=== PATIENT | female | born 1995 | race Caucasian/White ===

== ENCOUNTER 2017-05-14 09:09 | Inpatient (IN) | payer OTHER ==
[2017-05-14] MEDS ORDERED: CLEOCIN HCL300 M1 PO (09:16)
[2017-05-14 10:05] LABS: URINE BILIRUBIN MODERATE (NEG); URINE BLOOD MODERATE (NEG); URINE GLUCOSE (UA) NEGATIVE (NEG); URINE KETONE SMALL (NEG); URINE LEUKOCYTE ESTERASE POSITIVE (NEG); URINE NITRITE POSITIVE (NEG); URINE PROTEIN MODERATE (NEG); URINE SPECIFIC GRAVITY 1.025 (1.003-1.030)
[2017-05-14 10:10] LABS: URINE APPEARANCE CLOUDY; URINE COLOR DARK YELLOW
[2017-05-14 10:12] LABS: URINE BACTERIA 3+
[2017-05-14 10:14] LABS: URINE AMORPHOUS 1+
[2017-05-14 10:44] LABS: HCT-HEMATOCRIT 43.6 % (34.0-49.0); HGB-HEMOGLOBIN 14.8 gm/dl (12.0-15.5); MCH (MEAN CORPUSCULAR HGB) 27.8 pg (28.0-32.0); MCHC MEAN CORPUSCULAR HGB CONC 33.9 % (32.0-36.0); MEAN PLATELET VOLUME 11.4 cmc (9.4-12.4); NEUTROPHIL-AUTOMATED 15.7 tho/cmm (1.6-8.0); PLATELET COUNT 122 tho/cmm (150-450); RED BLOOD COUNT 5.32 mil/cmm (4.00-5.20); RED CELL DISTRIBUTION WIDTH 13.2 % (12.4-16.4); WHITE BLOOD COUNT 16.5 tho/cmm (4.0-10.0)
[2017-05-14 10:46] LABS: PREGNANCY-SERUM NEGATIVE (NEGATIVE)
[2017-05-14 10:58] LABS: ALB/GLOB RATIO 0.7 (0.8-2.0); ALBUMIN 2.6 g/dl (3.5-5.0); ALKALINE PHOSPHATASE 97 U/L (33-138); ALT/SGPT 63 U/L (12-78); ANION GAP 17 mmol/L (0-20); BILIRUBIN,TOTAL 5.3 mg/dl (0-1.5); BLOOD UREA NITROGEN 54 mg/dl (6-24); CALCIUM 7.2 mg/dl (8.5-10.5); CARBON DIOXIDE-VENOUS 21 mmol/L (22-32); CHLORIDE 102 mmol/l (96-110); CREATININE 2.79 mg/dl (0.50-1.10); GLUCOSE 134 mg/dL (70-110); LIPASE 66 U/L (73-393); SODIUM 136 mmol/L (135-145); eGFR VALUE FOR BLACK 27 mL/Min
[2017-05-14 10:59] LABS: AST/SGOT 45 U/L (10-40)
[2017-05-14 11:00] LABS: C-REACTIVE PROTEIN 29.7 mg/dl (0-0.9)
[2017-05-14 11:06] LABS: PROCALCITONIN 54.15 ng/ml (0.05-0.09)
[2017-05-14 11:22] LABS: BAND % 44 % (0-20); BAND ABSOLUTE COUNT 7.3 tho/cmm (0-2.0); EOSINOPHIL % 2 % (0-7)
[2017-05-14 16:22] LABS: INR 1.4 INR (0.9-1.1); PROTHROMBIN TIME 16.2 SECONDS (9.0-13.6)
[2017-05-14 17:30] LABS: MAGNESIUM 1.3 mg/dl (1.8-2.6); POTASSIUM 3.3 mmol/L (3.7-5.1)
[2017-05-14 21:55] LABS: POTASSIUM 3.8 mmol/L (3.7-5.1)
[2017-05-15 01:46] LABS: MAGNESIUM 2.8 mg/dl (1.8-2.6); POTASSIUM 4.1 mmol/L (3.7-5.1)
[2017-05-15 05:16] LABS: HCT-HEMATOCRIT 33.5 % (34.0-49.0); HGB-HEMOGLOBIN 11.2 gm/dl (12.0-15.5); MCH (MEAN CORPUSCULAR HGB) 27.6 pg (28.0-32.0); MCHC MEAN CORPUSCULAR HGB CONC 33.4 % (32.0-36.0); MCV (MEAN CELL VOLUME) 82.5 fl (82.0-96.0); MEAN PLATELET VOLUME 11.5 cmc (9.4-12.4); NEUTROPHIL-AUTOMATED 9.8 tho/cmm (1.6-8.0); RED BLOOD COUNT 4.06 mil/cmm (4.00-5.20); RED CELL DISTRIBUTION WIDTH 13.4 % (12.4-16.4); WHITE BLOOD COUNT 10.8 tho/cmm (4.0-10.0)
[2017-05-15 05:19] LABS: ALB/GLOB RATIO 0.6 (0.8-2.0); ALBUMIN 1.6 g/dl (3.5-5.0); ALKALINE PHOSPHATASE 80 U/L (33-138); ALT/SGPT 51 U/L (12-78); AST/SGOT 36 U/L (10-40); BILIRUBIN,INDIRECT 0.7 mg/dL (0.0-1.0); BILIRUBIN,TOTAL 3.7 mg/dl (0-1.5); C-REACTIVE PROTEIN 18.8 mg/dl (0-0.9)
[2017-05-15 07:13] LABS: PLATELET COUNT 56 tho/cmm (150-450)
[2017-05-15 07:17] LABS: BAND % 46 % (0-20); EOSINOPHIL % 1 % (0-7)
[2017-05-15 11:16] LABS: CKMB 0.5 ng/ml (<3.6); CREATINE PHOSPHOKINASE (CPK) 26 U/L (21-215)
[2017-05-15 11:26] LABS: eGFR VALUE FOR BLACK >90 mL/Min
[2017-05-15 11:38] LABS: CREATININE 0.66 mg/dl (0.50-1.10)
[2017-05-16 05:24] LABS: BASO % 0.2 % (0-2); EOS % 4.5 % (0-7); EOSINOPHIL ABSOLUTE COUNT 0.5 tho/cmm (0.0-0.7); HGB-HEMOGLOBIN 10.3 gm/dl (12.0-15.5); IMMATURE GRANULOCYTES ABSOLUTE 0.06 tho/cmm (0-0.03); IMMATURE GRANULOCYTES PERCENT 0.6 % (0-0.3); LYMPH % 10.4 % (20-45); LYMPH ABSOLUTE COUNT 1.1 tho/cmm (0.8-4.5); MCH (MEAN CORPUSCULAR HGB) 27.4 pg (28.0-32.0); MCHC MEAN CORPUSCULAR HGB CONC 33.2 % (32.0-36.0); MCV (MEAN CELL VOLUME) 82.4 fl (82.0-96.0); MEAN PLATELET VOLUME 11.9 cmc (9.4-12.4); MONO % 3.8 % (0-12); MONOCYTE ABSOLUTE COUNT 0.4 tho/cmm (0.0-1.2); NEUTROPHIL ABSOLUTE COUNT 8.4 tho/cmm (1.6-8.0); NEUTROPHIL-AUTOMATED 8.4 tho/cmm (1.6-8.0); NEUTROPHILS % 80.5 % (40-80); RED BLOOD COUNT 3.76 mil/cmm (4.00-5.20); RED CELL DISTRIBUTION WIDTH 13.9 % (12.4-16.4); WHITE BLOOD COUNT 10.5 tho/cmm (4.0-10.0)
[2017-05-16 05:36] LABS: ALB/GLOB RATIO 0.6 (0.8-2.0); ALBUMIN 1.5 g/dl (3.5-5.0); ALKALINE PHOSPHATASE 92 U/L (33-138); ALT/SGPT 47 U/L (12-78); ANION GAP 9 mmol/L (0-20); AST/SGOT 24 U/L (10-40); BILIRUBIN,DIRECT 1.1 mg/dl (0.0-0.3); BILIRUBIN,INDIRECT 0.5 mg/dL (0.0-1.0); BLOOD UREA NITROGEN 8 mg/dl (6-24); C-REACTIVE PROTEIN 13.4 mg/dl (0-0.9); CARBON DIOXIDE-VENOUS 21 mmol/L (22-32); CHLORIDE 116 mmol/l (96-110); CREATININE 0.54 mg/dl (0.50-1.10); GLUCOSE 84 mg/dL (70-110); POTASSIUM 3.5 mmol/L (3.7-5.1); SODIUM 142 mmol/L (135-145); eGFR VALUE FOR BLACK >90 mL/Min
[2017-05-16 05:40] LABS: BILIRUBIN,TOTAL 1.6 mg/dl (0-1.5)
[2017-05-16 07:20] LABS: PLATELET COUNT 36 tho/cmm (150-450)
--- NOTE | 2017-05-16 15:17 | NUR ---
VIRTUAL CARE NOTE: PT AWAKE SITTING UP IN CHAIR. PT INFORMED OF VN ROLE. PT STATES SHE IS FEELING BETTER, STILL VERY TIRED. PT DENIES PAIN AT THIS TIME. ENC INCREASE ACTIVITY FOR STRENGTHENING, PT VERBALIZES UNDERSTANDING. PT DENIES QUESTIONS/CONCERNS AT THIS TIME. [place] [employer] IN TO ASSIST PT. VN WILL CONTINUE TO MONITOR ELECTRONIC RECORD AND FOLLOW W/ PT.
--- NOTE | 2017-05-16 21:42 | NUR ---
VIRTUAL CARE NOTE: PT. NEEDING TO USE THE RESTROOM AND IS ON THE WAY AT THIS TIME, INSTRUCTED TO CALL FOR FUTURE NEEDS. STATES VERBAL AGREEMENT.
--- NOTE | 2017-05-17 13:37 | NUR ---
VIRTUAL CARE NOTE: PT AWAKE, RESTING IN BED, ROOM LIGHTS OFF/ SHADES PULLED DOWN. PT STATES HAVING HEADACHE, RECEIVED TYLENOL ~1240. PT STATES SHE JUST GOT BACK FROM WALK W/ P.T, STATES FEELING STRONGER, WAS ABLE TO WALK AROUND UNIT TODAY. PT AWAITING PROVIDERS TO ROUND, QUESTIONS ANSWERED. PT DENIES FURTHER QUESTIONS, NO CONCERNS. VN WILL CONTINUE TO MONITOR ELECTRONIC RECORD AND FOLLOW W/ PT.
--- NOTE | 2017-05-17 19:18 | NUR ---
VIRTUAL CARE NOTE: SLEEPING ASSESSMENT DEFERRED.
[2017-05-18 13:00] LABS: HCT-HEMATOCRIT 30.3 % (34.0-49.0); MCH (MEAN CORPUSCULAR HGB) 27.3 pg (28.0-32.0); MCV (MEAN CELL VOLUME) 82.8 fl (82.0-96.0); MEAN PLATELET VOLUME 11.9 cmc (9.4-12.4); RED BLOOD COUNT 3.66 mil/cmm (4.00-5.20); RED CELL DISTRIBUTION WIDTH 13.7 % (12.4-16.4); WHITE BLOOD COUNT 11.8 tho/cmm (4.0-10.0)
[2017-05-18 13:02] LABS: BASO % 0.5 % (0-2); BASO ABSOLUTE COUNT 0.1 tho/cmm (0.0-0.2); EOS % 7.4 % (0-7); EOSINOPHIL ABSOLUTE COUNT 0.9 tho/cmm (0.0-0.7); IMMATURE GRANULOCYTES ABSOLUTE 1.54 tho/cmm (0-0.03); LYMPH % 20.1 % (20-45); LYMPH ABSOLUTE COUNT 2.4 tho/cmm (0.8-4.5); MONO % 8.1 % (0-12); NEUTROPHILS % 50.9 % (40-80)
[2017-05-18 13:13] LABS: ALB/GLOB RATIO 0.6 (0.8-2.0); ALBUMIN 1.8 g/dl (3.5-5.0); ALKALINE PHOSPHATASE 108 U/L (33-138); ALT/SGPT 40 U/L (12-78); ANION GAP 10 mmol/L (0-20); AST/SGOT 29 U/L (10-40); BILIRUBIN,DIRECT 0.4 mg/dl (0.0-0.3); BILIRUBIN,INDIRECT 0.3 mg/dL (0.0-1.0); BILIRUBIN,TOTAL 0.7 mg/dl (0-1.5); BLOOD UREA NITROGEN 7 mg/dl (6-24); CALCIUM 7.6 mg/dl (8.5-10.5); CARBON DIOXIDE-VENOUS 28 mmol/L (22-32); CHLORIDE 111 mmol/l (96-110); CREATININE 0.41 mg/dl (0.50-1.10); GLUCOSE 77 mg/dL (70-110); POTASSIUM 3.1 mmol/L (3.7-5.1); SODIUM 146 mmol/L (135-145); eGFR VALUE FOR BLACK >90 mL/Min
[2017-05-18 13:40] LABS: PLATELET COUNT 86 tho/cmm (150-450)
[2017-05-19] MEDS ORDERED: NORCO 5-325 TA1 EACH PO (14:01)
[2017-05-19] MEDS ORDERED: STOP HOME MEDICATION (14:02)
[2017-05-19] MEDS ORDERED: TYLENOL ARTHRI650 M1 PO (14:03)
--- NOTE | 2017-05-19 14:18 | NUR ---
VIRTUAL CARE NOTE: VISITS WITH PT AND PT'S MOM REGARDING DISCHARGE PLAN TODAY AND DAILY PACKING DRESSING CHANGES AT HOME. MOM FEELS PRETTY COMFORTABLE DOING PAKCING AT HOME, WILL CHECK WITH FOR OK TO DO OWN DRESSING AND PT DOES NOT NEED TO GO TO SPECIAL CLINIC.
[2017-05-19 14:28] LABS: URINE CHLORIDE RANDOM 78 mmol/L (55-125); URINE POTASSIUM RANDOM 4 mmol/L (12-62); URINE SODIUM-RANDOM 87 mmol/L (20-110)
--- NOTE | 2017-05-19 14:54 | NUR ---
VIRTUAL CARE NOTE: OK FOR MOM TO DO DRESSING CHANGES AT HOME. PT AND MOM READY FOR DISCHARGE INSTRUCTIONS. INFORMATION GIVEN TO PT AND MOM, DRESSING INSTRUCTIONS GIVEN TO MOM AND PT. MOM DENIES QUESTIONS OR CONCERNS. INFORMED FLOOR NURSE DISCHARGE TEACHING COMPLETE.
== END 2017-05-19 15:15 | DRG 853 ==
LOC: EDMED 09:09 → EMR2 14:20 → CCU 14:22 → 5WD 05-16 08:54 → ORW 05-18 14:17 → PACU 05-18 15:13 → 5WD 05-18 15:54
PROVIDERS: Emergency Medicine; Internal Medicine; Registered Nurse; ADMIT Family Medicine
PROC: 02HV33Z Insertion of Infusion Device into Superior Vena Cava, Percutaneous Approach (ICD-10-PCS; 2017-05-14)
PROC: 0H9U3ZZ Drainage of Left Breast, Percutaneous Approach (ICD-10-PCS; principal; 2017-05-18)
PROC: 0JB60ZZ Excision of Chest Subcutaneous Tissue and Fascia, Open Approach (ICD-10-PCS; 2017-05-18)
PROC: 0H95XZZ Drainage of Chest Skin, External Approach (ICD-10-PCS; 2017-05-18)
DX: A41.9 Sepsis, unspecified organism (principal); R65.21 Severe sepsis with septic shock; I47.2 Ventricular tachycardia; N17.9 Acute kidney failure, unspecified; I96 Gangrene, not elsewhere classified; D69.6 Thrombocytopenia, unspecified; Z68.42 Body mass index [BMI] 45.0-49.9, adult; E46 Unspecified protein-calorie malnutrition; L03.313 Cellulitis of chest wall; N39.0 Urinary tract infection, site not specified; E88.09 Other disorders of plasma-protein metabolism, not elsewhere classified; E83.51 Hypocalcemia; F50.89 Other specified eating disorder; N61.1 Abscess of the breast and nipple; B95.62 Methicillin resistant Staphylococcus aureus infection as the cause of diseases classified elsewhere; J45.990 Exercise induced bronchospasm; E66.8 Other obesity; E80.6 Other disorders of bilirubin metabolism; Z88.0 Allergy status to penicillin; J98.6 Disorders of diaphragm; E86.0 Dehydration; D64.9 Anemia, unspecified
CPT/HCPCS: C1751; C8929; J0282; J0610; J0690; J0696; J1650; J1815; J1956; J2405; J3370; J3475; J3480; J7030; P9612